=== PATIENT | female | born 1985 | race Caucasian/White ===

== ENCOUNTER 2019-02-21 08:40 | Outpatient (REF) | payer MEDICARE, MEDICAID, SELFPAY ==
[2019-02-21 22:14] LABS: TSH (W/Ref FT4) 39.57 uIU/mL (0.36-3.74)
[2019-02-21 22:31] LABS: FREE T4 0.56 ng/dL (0.76-1.46)
== END 2019-02-21 09:00 ==
LOC: NCHCN 08:40
PROVIDERS: PCP Family Medicine; Visit Provider Nurse Practitioner Family
DX: E03.9 Hypothyroidism, unspecified (principal)
CPT/HCPCS: 84439; 84443

== ENCOUNTER 2019-11-07 16:03 | Outpatient (REF) | payer MEDICARE, MEDICAID, SELFPAY ==
[2019-11-07 21:30] LABS: TSH 18.45 uIU/mL (0.36-3.74)
== END 2019-11-07 16:23 ==
LOC: NCHCN 16:03
PROVIDERS: PCP Family Medicine; Visit Provider Nurse Practitioner Family
DX: E03.9 Hypothyroidism, unspecified (principal)
CPT/HCPCS: 84443

== ENCOUNTER 2019-12-07 10:20 | Outpatient (REF) | payer MEDICARE, MEDICAID, SELFPAY ==
[2019-12-07 21:17] LABS: TSH (W/Ref FT4) 27.58 uIU/mL (0.36-3.74)
[2019-12-07 21:46] LABS: FREE T4 0.78 ng/dL (0.76-1.46)
== END 2019-12-07 10:40 ==
LOC: NCHCN 10:20
PROVIDERS: PCP Family Medicine; Visit Provider Nurse Practitioner Family
DX: E03.9 Hypothyroidism, unspecified (principal)
CPT/HCPCS: 84439; 84443

== ENCOUNTER 2020-01-22 16:04 | Outpatient (REF) | payer MEDICARE, MEDICAID, SELFPAY ==
[2020-01-22 21:23] LABS: Abs Immature Grans 0.01 10^3/uL (0.0-0.06); Absolute Basophil Count 0.06 10^3/uL (0.0-0.2); Absolute Eosinophil Count 0.06 10^3/uL (0.0-0.7); Absolute Lymphocyte Count 2.08 10^3/uL (1.2-3.4); Absolute Neutrophil Count 6.97 10^3/uL (1.2-6.7); Basophils % 0.6; Eosinophils % 0.6; HCT 37.6 % (36.0-46.0); HGB 12.5 g/dL (11.2-15.7); Immature Grans % 0.1; Lymphocytes % 21.5; MCH 31.1 pg (27.0-33.0); MCHC 33.2 % (32.0-36.0); MCV 93.5 fL (80-95); MPV 10.7 fL (8.0-11.0); Monocytes % 5.2; Nucleated RBC 0 %; Platelet Count 201 10^3/uL (130-400); RBC 4.02 10^6/uL (3.93-5.22); RDW 12.6 % (11.7-14.6); RDW-SD 43.2 fL; WBC 9.68 10^3/uL (4.4-10.8)
[2020-01-22 22:22] LABS: ALT 27 U/L (14-59); AST 20 U/L (15-37); Albumin 4.6 g/dL (3.4-5.0); Alkaline Phosphatase 60 U/L (46-116); Anion Gap 5.3 mmol/L (3-11); BUN 14 mg/dL (7-18); Bilirubin, Total 0.3 mg/dL (0.2-1.0); CO2 34.7 mmol/L (21.0-32.0); CREATININE 0.85 mg/dL (0.55-1.02); Calcium 9.1 mg/dL (8.5-10.1); Chloride 101 mmol/L (98-107); Glucose 42 mg/dL (74-106); Potassium 3.8 mmol/L (3.5-5.1); Sodium 141 mmol/L (136-145); TSH 27.61 uIU/mL (0.36-3.74)
[2020-01-23 00:12] LABS: Total Protein 7.9 g/dL (6.4-8.2)
== END 2020-01-22 16:24 ==
LOC: NCHCN 16:04
PROVIDERS: PCP Family Medicine; Visit Provider Nurse Practitioner Family
DX: E03.9 Hypothyroidism, unspecified (principal); R59.9 Enlarged lymph nodes, unspecified
CPT/HCPCS: 80053; 84443; 85025

== ENCOUNTER 2021-12-23 18:26 | Outpatient (REF) | payer MEDICARE, MEDICAID, SELFPAY | END 2021-12-23 18:27 | disposition home or self-care (01) | LOC: NCHCN 18:26 | PROVIDERS: Visit Provider Nurse Practitioner Family | DX: E03.9 Hypothyroidism, unspecified (principal) | CPT/HCPCS: 84443 ==

== ENCOUNTER 2022-01-27 09:13 | Outpatient (REF) | payer MEDICARE, MEDICAID, SELFPAY ==
[2022-01-27 16:02] LABS: TSH 12.68 uIU/mL (0.36-3.74)
== END 2022-01-27 09:14 | disposition home or self-care (01) ==
LOC: NCHCN 09:13
PROVIDERS: Visit Provider Nurse Practitioner Family
DX: E03.9 Hypothyroidism, unspecified (principal); F32.89 Other specified depressive episodes; F43.22 Adjustment disorder with anxiety; F43.10 Post-traumatic stress disorder, unspecified
CPT/HCPCS: 84443

== ENCOUNTER 2022-03-10 14:52 | Outpatient (REF) | payer MEDICARE, MEDICAID, SELFPAY ==
--- NOTE | 2022-03-10 08:00 | PAPFT_PTH ---
PATIENT: Emily Payne LOC: [facility]#:[id number] AGE/SX: 36/F ROOM: RE03/10/[address]: Tahmina Santos : 1985 BED: DIS: 03/10/2022 SPEC #: [id number] RECD: 03/10/22 17:44 STATUS: [place] REQ #: [id number] DELORIS: 03/10/22 08:[address]: Tahmina Santos DEPT: [facility] Cytology RECD BY: Rima Parra ENTERED: 03/10/22 17:44 SP TYPE: PAPFT OT DR: Unknown,Unknown Tissues: 1 - CX/ENDOCX FOR PAP SMEARS Procedures: PAP THIN PREP/[facility] Screening HPV DNA PROBE Comments: [id number] (HPV 16 & 18/45) (CHLAMYDIA/GC)
[2022-03-10 14:53] LABS: TSH 3.04 uIU/mL (0.36-3.74)
[2022-03-11 15:11] LABS: Chlamydia Result Negative (Negative); GC Result Negative (Negative)
== END 2022-03-10 14:53 | disposition home or self-care (01) ==
LOC: NCHCN 14:52
PROVIDERS: Visit Provider Nurse Practitioner Family
DX: E03.9 Hypothyroidism, unspecified (principal); R87.810 Cervical high risk human papillomavirus (HPV) DNA test positive; Z11.51 Encounter for screening for human papillomavirus (HPV); Z11.3 Encounter for screening for infections with a predominantly sexual mode of transmission; Z01.419 Encounter for gynecological examination (general) (routine) without abnormal findings
CPT/HCPCS: 87491; 87591; 88142; 84443; 87624